=== PATIENT | male | born 1985 | race Caucasian/White ===

== ENCOUNTER 2017-02-22 05:23 | Emergency (ER) | payer SELFPAY ==
[2017-02-22] MEDS ORDERED: Sodium Chloride 0.9% 10 ML Syringe FLUSH PRN ×2 (05:44→05:47)
[2017-02-22] MEDS ORDERED: Sodium Chloride 0.9% 1,000 ML IV ONE (05:51)
[2017-02-22] MEDS ORDERED: Ketorolac 30 MG/ML SDV IVPUSH ONE (05:52)
[2017-02-22] MEDS ORDERED: Ondansetron 4 MG/2 ML SDV IVPUSH ONE (05:58)
[2017-02-22 06:58] LABS: CHLORIDE,CL 102 mmol/L (98-107); SODIUM,NA 139 mmol/L (136-145)
[2017-02-22] MEDS ORDERED: cefTRIAXone 2 GM Vial IVPUSH ONE (07:03)
[2017-02-22 07:13] VITALS: BP 118/67
--- NOTE | 2017-02-23 08:42 | ER ---
Date of Service: 02/22/2017 SUBJECTIVE: Anant presents to the emergency room with complaints of fever and chills. He also complains of severe weakness. The patient's states that the patient has not been experiencing any rash. No complaints of sore throat or other symptoms. Has not been experiencing any rhinorrhea. No abdominal pain, chest pain, or shortness of breath. PAST MEDICAL HISTORY: None. MEDICATIONS: None. ALLERGIES: NKDA. REVIEW OF SYSTEMS: Please see history of present illness. Denies any chest pain or shortness of breath. Again, the patient has been experiencing severe fever and chills for the past 8 hours. No nausea, vomiting, or diarrhea. No melena, hematochezia, or hematemesis. PHYSICAL EXAMINATION: General: This is a 31-year-old patient, in no acute distress. Vital Signs: Blood pressure is 118/67, pulse rate is 118, temperature is 38.3, respiratory rate is 24, and O2 saturations 95%. Skin: Warm, pink, and dry. HEENT: Head: Normocephalic, atraumatic. Eyes: PERRLA. Extraocular movements are intact. Ears: TMs are clear. Mouth: Oral mucosa is moist. No erythema or exudate noted in the hypopharynx. Neck: Supple, without masses. There is no lymphadenopathy. Lungs: Clear to auscultation. Heart: Regular rate and rhythm. Abdomen: Soft, nontender. There is no hepatosplenomegaly or masses noted. Extremities: Without edema. LABORATORY DATA: CBC was obtained. WBCs were 11.9. Comprehensive metabolic panel was obtained with the exception of an elevated blood glucose of 120, AST is 65, and ALT of 83 was within normal limits. C-reactive protein is 1.7. Urinalysis was obtained and was within normal limits. Influenza A and B were obtained and were negative. The patient did test positive for strep pharyngitis, however. EMERGENCY ROOM COURSE: IV access was established. He was given a liter of normal saline IV. He was given Toradol 30 mg IV and Zofran 4 mg IV for nausea. He was given ceftriaxone 2 g IV on obtaining his throat culture results. He remained stable in my care in the emergency room. ASSESSMENT: Strep pharyngitis. PLAN: The patient will be discharged. Discussed the findings with the patient and his family. All questions were answered. MWK: 02/23/2017 05:08:10 MODL: 02/23/2017 05:26:52 /[id number]
== END 2017-02-22 08:06 | disposition home or self-care (01) ==
LOC: VM.ED 05:23
DX: J02.0 Streptococcal pharyngitis (principal)
CPT/HCPCS: 36415; 71020; 80053; 81001; 83605; 83690; 85025; 86140; 87040; 87804; 87880; 96361; 96374; 99284; J0696; J1885; J2405; J7030; 99283-GF